=== PATIENT | male | born 1980 | race Caucasian/White ===

== ENCOUNTER 2019-04-29 13:28 | Emergency (ER) | payer SELFPAY ==
[2019-04-29] MEDS: KETOROLAC 30 MG INJ IV (15:01)
[2019-04-29] MEDS: DIAZEPAM 10 MG/2 ML SYG IV (15:01)
[2019-04-29] MEDS: LISINOPRIL 5 MG TAB PO (16:24)
== END 2019-04-29 16:31 | disposition home or self-care (01) ==
LOC: E/R 16:31
DX: M54.5 Low back pain (principal); I16.1 Hypertensive emergency; E11.65 Type 2 diabetes mellitus with hyperglycemia; I10 Essential (primary) hypertension
CPT/HCPCS: 36415; 76775; 80053; 81001; 83690; 85025; 96374; 96375; 99285-25